=== PATIENT | male | born 1955 ===

== ENCOUNTER 2018-02-22 15:51 | Emergency (ER) | payer OTHER ==
[2018-02-22] MEDS ORDERED: Ondansetron HCl/PF 4 MG/2 ML Vial ONE (16:23)
[2018-02-22] MEDS ORDERED: Morphine 4 MG/ML VIAL ONE (16:23)
[2018-02-22 16:24] LABS: #Monocytes 1.1 thou/uL (0.11-0.59); #Neutrophils 11.3 thou/uL (1.40-6.50); %Basophils 0.2 % (0.0-1.0); %Eosinophils 0.2 % (0.0-10.0); %Lymphocytes 13.6 % (21.0-51.0); %Monocytes 7.8 % (0.0-10.0); %Neutrophils 78.1 % (42.0-75.0); Hemoglobin 17.4 g/dL (14.0-18.0); Mean Corpuscular HGB CONC 35.2 g/dL (32.0-36.0); Mean Corpuscular Hemoglobin 32.3 pg (27.0-31.0); Mean Corpuscular Volume 91.9 fL (78.0-98.0); Mean Platelet Volume 6.4 fL (7.4-10.4); Platelet Count 266 thou/uL (130-400); Red Blood Cell (RBC) Count 5.38 mill/uL (4.70-6.10); White Blood Cell (WBC) Count 14.5 thou/uL (4.8-10.8)
[2018-02-22 16:41] LABS: ALT (SGPT) 24 U/L (8-55); AST (SGOT) 26 U/L (5-34); Albumin 4.5 g/dL (3.4-4.8); Alkaline Phosphatase 112 U/L (40-150); Anion Gap 16 mmol/L (10-20); BUN (Urea Nitrogen) 16 mg/dL (8.4-25.7); Bilirubin, Total 0.9 mg/dL (0.2-1.2); Calc. Creatinine Clearance 0 mL/min (70-130); Calcium 9.7 mg/dL (7.8-10.44); Carbon Dioxide 21 mmol/L (23-31); Chloride 103 mmol/L (98-107); Estimated GFR-MDRD 86; Globulin 3.4 g/dL (2.4-3.5); Glucose 116 mg/dL (80-115); Lipase 31 U/L (8-78); Potassium 3.4 mmol/L (3.5-5.1); Protein, Total 7.9 g/dL (5.8-8.1); Sodium 137 mmol/L (136-145)
--- NOTE | 2018-02-22 19:27 | CT ---
CT OF THE ABDOMEN AND PELVIS WITH CONTRAST: 02/22/18 No prior films are available for comparison. Axial slices were acquired, then coronal and sagittal reconstructions were done. The lung bases are clear. No infiltrate, effusion, or mass was seen. The heart size is normal. There are very few calcifications in the aorta until one gets to the bifurcation. The liver is normal in size and shows no obvious mass. The spleen, pancreas, adrenal glands, and aort a were unremarkable. There has been a prior cholecystectomy. The kidneys show no definite mass or hyd ronephrosis. There is an extrarenal pelvis on the left. There is probably a small cyst in the right k idney, but ultrasound would be needed to confirm this small low density area. The bowel is nondistended. There is no sign of obstruction, bowel wall thickening, or inflammatory ch judy around bowel. No free air, or free fluid was seen. There is no evidence of ascites. CT of the pelvis showed no pelvic masses, fluid collections, or inflammatory changes. Spondylolysis o f L5 is noted bilaterally. The gastric folds are somewhat thicker and more prominent than usual. The findings are rather diffuse . This does raise a possibility of gastritis. IMPRESSION: 1. Possible gastritis. 2. No acute findings otherwise. 3. Bilateral spondylolysis of L5. POS: HOME
== END 2018-02-22 17:37 | disposition home or self-care (01) ==
LOC: BURERS 15:51
DX: K52.9 Noninfective gastroenteritis and colitis, unspecified (principal); F43.10 Post-traumatic stress disorder, unspecified; F17.210 Nicotine dependence, cigarettes, uncomplicated; I10 Essential (primary) hypertension; K74.60 Unspecified cirrhosis of liver; Z85.05 Personal history of malignant neoplasm of liver
CPT/HCPCS: 74177; 80053; 83605; 83690; 85025; 96361; 96374; 96375; J2270; J2405